=== PATIENT | male | born 1955 | race Caucasian/White ===

== ENCOUNTER 2023-12-07 07:22 | Inpatient (IN) | payer MEDICARE, BC ==
[2023-12-07 07:49] LABS: BASOPHILS ABSOLUTE AUTO 0.1 K/mm3 (0.0-0.2); BASOPHILS PERCENT AUTO 0.8 % (0.0-1.0); EOSINOPHILS ABSOLUTE AUTO 0.3 K/mm3 (0.0-0.4); EOSINOPHILS PERCENT AUTO 3.3 % (0.0-6.0); HEMATOCRIT 48.8 % (42.0-52.0); HEMOGLOBIN 16.3 gm/dl (14.0-18.0); IMMATURE GRAN ABSOLUTE AUTO 0.04 K/mm3 (0.00-0.05); IMMATURE GRAN PERCENT AUTO 0.5 % (0.0-0.4); LYMPHOCYTES ABSOLUTE AUTO 2.1 K/mm3 (1.0-4.8); LYMPHOCYTES PERCENT AUTO 24.7 % (24.0-44.0); MEAN CORPUSCULAR HEMOGLOBIN 28.6 pg (28.0-32.0); MEAN CORPUSCULAR HGB CONC 33.4 g/dl (32.0-36.0); MEAN CORPUSCULAR VOLUME 85.8 fl (83.0-99.0); MEAN PLATELET VOLUME 8.8 fl (9.4-12.4); MONOCYTES ABSOLUTE AUTO 0.8 K/mm3 (0.0-0.8); MONOCYTES PERCENT AUTO 9.1 % (0.0-8.0); NEUTROPHILS ABSOLUTE AUTO 5.2 K/mm3 (1.8-7.7); NEUTROPHILS PERCENT AUTO 61.6 % (41.0-71.0); PLATELET COUNT,PLT 210 K/mm3 (150-400); RED BLOOD CELL COUNT 5.69 M/mm3 (4.52-5.90); WHITE BLOOD CELL COUNT,WBC 8.42 K/mm3 (3.9-11.3)
[2023-12-07] MEDS: Aspirin 81 MG Tab.Chew PO ONE (07:57)
[2023-12-07 07:59] LABS: INR 1.16; PROTHROMBIN TIME 12.3 SECONDS (9.7-12.0)
[2023-12-07 08:11] LABS: BILIRUBIN TOTAL 0.7 mg/dL (0.2-1.0); CALCIUM 8.8 mg/dL (8.5-10.1); EST CRCL DRUG DOSING (CG) 78.79 mL/min; MAGNESIUM 1.9 mg/dL (1.8-2.4); PHOSPHORUS 2.9 mg/dL (2.6-4.7); PROTEIN TOTAL,TP 8.1 g/dl (6.4-8.2)
[2023-12-07] MEDS: Iopamidol 755 Mg/ML 100 ML Bottle IVPUSH ONE (08:41)
[2023-12-07] MEDS: Sodium Chloride 0.9% 100 ML IV SCH (08:41)
[2023-12-07] MEDS: Ondansetron 4 MG/2 ML SDV IVPUSH ONE (10:12)
[2023-12-07] MEDS: hydrALAZINE 20 MG/ML SDV IVPUSH ONE (10:12)
[2023-12-07] MEDS: Morphine 4 MG/ML Syringe IVPUSH ONE ×2 (11:58)
[2023-12-07 12:37] LABS: APPEARANCE,URINE CLEAR (Clear); BILIRUBIN,URINE NEGATIVE (Negative); COLOR,URINE YELLOW (Yellow); GLUCOSE,URINE NEGATIVE (Negative); KETONES,URINE NEGATIVE (Negative); LEUKOCYTE ESTERASE,URINE NEGATIVE (Negative); NITRITE,URINE NEGATIVE (Negative); OCCULT BLOOD,URINE NEGATIVE (Negative); PROTEIN,URINE NEGATIVE (Negative); UROBILINOGEN,URINE 0.2 (0.2-1.0)
[2023-12-07] MEDS ORDERED: Ondansetron 4 MG Tab.DIS PO PRN (12:44)
[2023-12-07] MEDS ORDERED: Morphine 2 MG/ML SYRINGE IVPUSH PRN (12:44)
[2023-12-07] MEDS ORDERED: Acetaminophen/oxyCODONE 325-5 MG Tab PO PRN (12:44)
[2023-12-07] MEDS ORDERED: Acetaminophen 325 MG Tab PO PRN (12:44)
[2023-12-07] MEDS ORDERED: Zolpidem 5 MG Tab PO PRN (12:44)
[2023-12-07] MEDS ORDERED: hydrALAZINE 20 MG/ML SDV IVPUSH PRN (12:59)
[2023-12-07 14:42] LABS: MAGNESIUM 1.9 mg/dL (1.8-2.4); TSH 0.759 uIU/mL (0.358-3.74)
[2023-12-07] MEDS ORDERED: Nitroglycerin 0.4 MG Tab.SL SL PRN (17:16)
[2023-12-07] MEDS: Naproxen 500 MG Tab PO SCH (20:25)
[2023-12-07] MEDS: Zolpidem 10 MG Tab PO PRN (20:26)
[2023-12-07] MEDS: hydrOXYzine HCl 25 MG Tab PO PRN (20:26)
[2023-12-08 05:29] LABS: HEMATOCRIT 44.4 % (42.0-52.0); MEAN CORPUSCULAR HEMOGLOBIN 28.6 pg (28.0-32.0); MEAN CORPUSCULAR HGB CONC 33.8 g/dl (32.0-36.0); MEAN CORPUSCULAR VOLUME 84.6 fl (83.0-99.0); MEAN PLATELET VOLUME 8.6 fl (9.4-12.4); PLATELET COUNT,PLT 183 K/mm3 (150-400); RED BLOOD CELL COUNT 5.25 M/mm3 (4.52-5.90); WHITE BLOOD CELL COUNT,WBC 6.11 K/mm3 (3.9-11.3)
[2023-12-08 05:54] LABS: ANION GAP 11.4 (5-15); BUN/CREATININE RATIO 15.6 (14-18); CALCIUM 8.4 mg/dL (8.5-10.1); CREATININE 0.9 mg/dL (0.7-1.3); EST CRCL DRUG DOSING (CG) 87.54 mL/min; POTASSIUM,K 3.4 mEq/L (3.5-5.1)
[2023-12-08] MEDS: Aspirin 81 MG Tab.Chew PO SCH (08:16)
[2023-12-08] MEDS: Hydrochlorothiazide 25 MG Tab PO SCH (08:16)
[2023-12-08] MEDS: Tamsulosin 0.4 MG Cap.ER PO SCH (08:16)
[2023-12-08] MEDS: Enoxaparin 40 MG/0.4 ML Syringe SUBCUT SCH (08:18)
[2023-12-08] MEDS: Metoprolol Succinate 50 MG Tab.ER PO SCH (08:18)
[2023-12-08] MEDS: Pantoprazole 40 MG Vial IV SCH (08:18)
[2023-12-08] MEDS: Potassium Chloride 20 MEQ Tab.ER PO ONE (10:09)
[2023-12-09 06:19] LABS: CHOLESTEROL HDL 34 mg/dL (40-59); CHOLESTEROL LDL DIRECT 113 mg/dL (<100); CHOLESTEROL TOTAL 165 mg/dL (<200); TRIGLYCERIDES 77 mg/dL (<150)
== END 2023-12-09 11:40 | disposition home or self-care (01) | DRG 311 ==
LOC: JD.ED 07:22 → JD.MS 11:31 → OBSVTOIN 12:45
PROVIDERS: ADMIT Internal Medicine; ATTEND Internal Medicine
DX: I20.0 Unstable angina (principal); I10 Essential (primary) hypertension; R07.9 Chest pain, unspecified; M19.90 Unspecified osteoarthritis, unspecified site; N40.0 Benign prostatic hyperplasia without lower urinary tract symptoms; R00.1 Bradycardia, unspecified; E87.6 Hypokalemia; Z96.652 Presence of left artificial knee joint; Z87.891 Personal history of nicotine dependence; Z96.612 Presence of left artificial shoulder joint; Z96.611 Presence of right artificial shoulder joint; Z96.641 Presence of right artificial hip joint
CPT/HCPCS: 36415; 71045; 71045-26; 71275; 71275-26; 80048; 80053; 80061; 81003; 83690; 83735; 83880; 84100; 84443; 84484; 85025; 85027; 85379; 85610; 85730; 93005; 93010; 94660; 94760; 99222; 99231; 99239; 99284; 99285; A9270-GY; C9113; J3490; Q9967